=== PATIENT | male | born 1955 | race Caucasian/White ===

== ENCOUNTER 2021-11-04 16:53 | Observation (INO) ==
[2021-11-04 17:35] LABS: Basophils # 0.1 10*3/uL (0.0-0.2); Basophils % 0.5 % (0.0-0.8); Eosinophils # 0.2 10*3/uL (0.0-0.87); Eosinophils % 2.1 % (0.00-10.9); Hematocrit 48.9 VOL% (42.0-52.0); Hemoglobin 15.5 GM/DL (14.0-18.0); Immature Granulocytes % 0.3 %; Immature Granulocytes Absolute 0.03 #; Lymphocytes # 2.4 10*3/uL (1.4-4.0); Lymphocytes % 26.3 % (21.2-54.2); Mean Corpuscular HGB Conc 31.7 GM/DL (32-36); Mean Corpuscular Volume 79.1 FL (87-102); Mean Platelet Volume 9.1 FL (9.6-12.0); Monocytes % 10.4 % (1.7-12.7); Neutrophils % 60.4 % (38.7-73.9); Platelet Count 381 T/CUMM (130-400); Red Blood Count 6.18 MC/CUMM (3.8-5.5); Red Cell Distribution Width 20.3 % (9.3-17.3); White Blood Count 9.1 T/CUMM (4-12)
[2021-11-04 17:55] LABS: Albumin 3.7 G/DL (3.4-5.0); Calcium 8.7 MG/DL (8.5-10.1); Osmolality,Calculated 274.8 MOS/KG (273-304); PT Patient Result 11.2 SECS (10.5-12.0); Partial Thromboplastin Time 26.9 SECS (23.8-32.1); Total Protein 6.8 G/DL (6.4-8.2)
[2021-11-04] MEDS ORDERED: PIPERACILLIN/TAZOBACTAM 3,375 MG in SODIUM CHLORIDE 0.9% 100 ML IV STA (18:53)
[2021-11-04] MEDS ORDERED: NITROGLYCERIN 2% OINT 1 INCH/GM PACK TOP STA (18:53)
[2021-11-04] MEDS ORDERED: ONDANSETRON 4 MG/2 ML VIAL IV STA (18:53)
[2021-11-04] MEDS ORDERED: ENOXAPARIN 100 MG/ML SYRINGE SUBCUT STA (19:01)
[2021-11-04] MEDS ORDERED: MORPHINE 2 MG/1 ML SYRINGE IV STA (19:04)
[2021-11-04] MEDS ORDERED: MORPHINE 2 MG/1 ML SYRINGE IV PRN (19:29)
[2021-11-04] MEDS ORDERED: ALBUTEROL/IPRATROPIUM 3 ML NEB RESP TX PRN (19:29)
[2021-11-04] MEDS ORDERED: ACETAMINOPHEN 325 MG TABLET PO PRN (19:29)
[2021-11-04] MEDS ORDERED: ONDANSETRON 4 MG/2 ML VIAL IV PRN (19:29)
[2021-11-04] MEDS ORDERED: GLUCAGON 1 MG VIAL IM PRN (19:29)
[2021-11-04] MEDS ORDERED: DEXTROSE 10% 250 ML BAG IV PRN (19:53)
[2021-11-04] MEDS: cefTRIAXone 1,000 MG in SODIUM CHLORIDE 0.9% 100 ML IV SCH (21:14)
[2021-11-04] MEDS: AZITHROMYCIN INJ 500 MG in SODIUM CHLORIDE 0.9% 250 ML IV SCH (22:08)
[2021-11-05 05:37] LABS: Basophils # 0.1 10*3/uL (0.0-0.2); Basophils % 0.6 % (0.0-0.8); Eosinophils # 0.2 10*3/uL (0.0-0.87); Eosinophils % 1.8 % (0.00-10.9); Hemoglobin 15.6 GM/DL (14.0-18.0); Immature Granulocytes % 0.3 %; Immature Granulocytes Absolute 0.03 #; Lymphocytes # 2.1 10*3/uL (1.4-4.0); Lymphocytes % 23.9 % (21.2-54.2); Mean Corpuscular HGB Conc 31.2 GM/DL (32-36); Mean Corpuscular Volume 79.6 FL (87-102); Mean Platelet Volume 8.9 FL (9.6-12.0); Monocytes # 0.8 10*3/uL (0.11-0.8); Monocytes % 8.6 % (1.7-12.7); Neutrophils % 64.8 % (38.7-73.9); Platelet Count 352 T/CUMM (130-400); Red Blood Count 6.28 MC/CUMM (3.8-5.5); Red Cell Distribution Width 20.5 % (9.3-17.3); White Blood Count 8.9 T/CUMM (4-12)
[2021-11-05 06:00] LABS: Calcium 8.5 MG/DL (8.5-10.1); Osmolality,Calculated 273.8 MOS/KG (273-304); Potassium 4.2 MMOL/L (3.5-5.1); Risk Ratio 2.91; Thyroid Stimulating Hormone 6.25 uIU/ml (0.358-3.74); VLDL Cholesterol 35.8 MG/DL
[2021-11-05] MEDS ORDERED: METOPROLOL TARTRATE 25 MG TABLET PO SCH (09:00)
[2021-11-05] MEDS: CLOPIDOGREL 75 MG TABLET PO SCH (09:40)
[2021-11-05] MEDS: PANTOPRAZOLE 40 MG TABLET PO SCH (09:40)
[2021-11-05] MEDS: ASPIRIN EC 325 MG TABLET PO SCH (09:40)
[2021-11-05] MEDS ORDERED: NITROGLYCERIN SL 0.4 MG TABLET SL PRN (09:56)
[2021-11-05] MEDS ORDERED: diphenhydrAMINE CAP 25 MG CAPSULE PO ONE (10:19)
[2021-11-05] MEDS ORDERED: DIAZEPAM 5 MG TABLET PO ONE (10:19)
[2021-11-05] MEDS ORDERED: SODIUM CHLORIDE 0.45% 1,000 ML IV SCH (10:30)
[2021-11-05] MEDS ORDERED: HEPARIN/NACL 0.9% 2 UNITS/ML 2,000 UNIT/1,000 ML BAG IV ONE (13:19)
[2021-11-05] MEDS ORDERED: VERAPAMIL 5 MG/2 ML VIAL ONE (15:27)
[2021-11-05] MEDS ORDERED: MIDAZOLAM 2 MG/2 ML VIAL ONE (15:27)
[2021-11-05] MEDS ORDERED: NITROGLYCERIN DRIP 50 MG/250 ML BOTTLE IV ONE (15:27)
[2021-11-05] MEDS ORDERED: fentaNYL 100 MCG/2 ML VIAL ONE (15:27)
[2021-11-05] MEDS ORDERED: ENOXAPARIN 60 MG/0.6 ML SYRINGE ONE (15:45)
[2021-11-05] MEDS ORDERED: SIMVASTATIN 40 MG TABLET PO SCH (21:00)
[2021-11-05] MEDS ORDERED: FAMOTIDINE 20 MG TABLET PO SCH (21:00)
[2021-11-05] MEDS: cefTRIAXone 1,000 MG in SODIUM CHLORIDE 0.9% 100 ML IV SCH (21:55)
[2021-11-05] MEDS: AZITHROMYCIN INJ 500 MG in SODIUM CHLORIDE 0.9% 250 ML IV SCH (22:28)
[2021-11-06 05:53] LABS: Basophils % 0.4 % (0.0-0.8); Eosinophils # 0.3 10*3/uL (0.0-0.87); Hematocrit 47.8 VOL% (42.0-52.0); Hemoglobin 14.8 GM/DL (14.0-18.0); Immature Granulocytes % 0.4 %; Immature Granulocytes Absolute 0.04 #; Lymphocytes # 2.5 10*3/uL (1.4-4.0); Lymphocytes % 24.9 % (21.2-54.2); Mean Corpuscular Volume 80.3 FL (87-102); Monocytes % 9.8 % (1.7-12.7); Neutrophils % 61.5 % (38.7-73.9); Platelet Count 347 T/CUMM (130-400); Red Blood Count 5.95 MC/CUMM (3.8-5.5); Red Cell Distribution Width 20.4 % (9.3-17.3)
[2021-11-06 06:07] LABS: Calcium 8.2 MG/DL (8.5-10.1); Calcium 8.4 MG/DL (8.5-10.1); Osmolality,Calculated 274.7 MOS/KG (273-304); Osmolality,Calculated 275.5 MOS/KG (273-304); Potassium 3.9 MMOL/L (3.5-5.1); Potassium 4.5 MMOL/L (3.5-5.1)
[2021-11-06 07:35] VITALS: BP 106/67
[2021-11-06] MEDS ORDERED: lisinopriL 2.5 MG TABLET PO SCH (09:00)
[2021-11-06] MEDS ORDERED: MULTIVITAMIN (CENTRUM) TABLET PO SCH (09:00)
[2021-11-06] MEDS ORDERED: allopurinoL 100 MG TABLET PO SCH (09:00)
[2021-11-06] MEDS: CLOPIDOGREL 75 MG TABLET PO SCH (09:46)
[2021-11-06] MEDS: PANTOPRAZOLE 40 MG TABLET PO SCH (09:46)
[2021-11-06] MEDS: ASPIRIN EC 325 MG TABLET PO SCH (09:47)
[2021-11-06] MEDS ORDERED: ALBUTEROL/IPRATROPIUM 3 ML NEB RESP TX SCH (10:44)
== END 2021-11-06 12:17 | disposition home or self-care (01) ==
LOC: N.ED 16:53 → N.EDINP 16:53 → SUATTDRO 19:29 → N.EDINP 11-05 13:00 → N.TELEN 11-05 13:37
PROVIDERS: ADMIT Internal Medicine; ATTEND Family Medicine
PROC: CLCCHCL (ICD-10-PCS; 2021-11-05 14:45)